=== PATIENT | female | born 1990 | race Caucasian/White ===

== ENCOUNTER 2020-11-22 19:34 | Observation (INO) ==
[2020-11-22 20:10] LABS: Basophils # 0.1 K/mcL (0.0-0.2); Basophils % 0.7 %; Eosinophils # 0.6 K/mcL (0.0-0.6); Eosinophils % 5.1 %; Hematocrit 41.1 % (35.3-44.9); Hemoglobin 14.1 g/dL (11.5-15.4); Immature Granulocytes % 0.3 % (0-4); Lymphocytes # 2.9 K/mcL (0.6-4.6); Lymphocytes % 24.5 %; Mean Corpuscular HGB Conc 34.3 g/dL (31.6-35.5); Mean Corpuscular Volume 90.3 fL (83.0-100.0); Mean Platelet Volume 12.9 fL (9.4-12.4); Monocytes # 0.9 K/mcL (0.0-1.3); Monocytes % 7.5 %; Neutrophils # 7.3 K/mcL (1.6-8.9); Platelet Count 198 K/mcL (140-400); Red Blood Count 4.55 M/mcL (3.82-4.97); Red Cell Distribution Width 12.3 % (11.5-14.5); Segmented Neutrophils % 61.9 %; White Blood Count 11.8 K/mcL (4.3-11.1)
[2020-11-22 20:20] LABS: Amphetamine Screen,Urine Positive ng/mL (Cutoff=1000); Barbiturate Screen,Urine Negative ng/mL (Cutoff=200); Benzodiazepines Screen,Urine Positive ng/mL (Cutoff=200); Cannabinoid Screen,Urine Positive ng/mL (Cutoff = 50); Cocaine Screen,Urine Positive ng/mL (Cutoff= 300); Opiate Screen,Urine Negative ng/mL (Cutoff=300); Phencyclidine Screen,Urine Negative ng/mL (Cutoff=25)
[2020-11-22 20:29] LABS: Acetaminophen < 10 mcg/mL (10-20); BUN/Creatinine Ratio 22 (6-26); Blood Urea Nitrogen 16 mg/dL (6-20); Calcium 9.3 mg/dL (8.6-10.3); Carbon Dioxide 24 mEq/L (23-29); Chloride 107 mEq/L (98-107); Chol/HDL Ratio 4.7 (0-4.9); Cholesterol 135 mg/dL (< 200); Ethanol < 10 mg/dL (Less than 10); Glucose 119 mg/dL (70-105); HDL Cholesterol 29 mg/dL (40-59); LDL Cholesterol,Calculated 89 mg/dL (< 100); Osmolality,Calculated 288 (280-300); Potassium 3.3 mEq/L (3.5-5.1); Salicylate < 2.5 mg/dL (15.0-30.0); Sodium 138 mEq/L (136-145); Triglycerides 84 mg/dL (< 150); eGFR For African Americans > 60 (> 60); eGFR For Non-African Americans > 60 (> 60)
[2020-11-22 20:39] LABS: Bilirubin,Urine Negative (Negative); Clarity,Urine Turbid (Clear); Color,Urine Yellow (Yellow); Glucose,Urine (UA) Normal (Normal)
[2020-11-22 20:40] LABS: Blood,Urine Negative (Negative); Ketones,Urine Trace mg/dL (Negative); Nitrite,Urine Negative (Negative); PH,Urine 6.5 pH Units (5.0-8.0); Protein,Urine 50 mg/dL (Neg-Trace); Specific Gravity,Urine > 1.030 (1.010-1.025)
[2020-11-22 20:41] LABS: Bacteria,Urine Few per hpf (None-Few); Leukocyte Esterase,Urine Negative (Negative); Mucus,Urine Few per lpf (None-Few); Squamous Epithelial Cell,Urine Moderate per hpf (None-Few); WBC,Urine 0-3 per hpf (0-3)
[2020-11-22 20:42] LABS: Calcium Oxalate Crystals,Urine Present per hpf; Calcium Phosphate Crystals,Ur Present per hpf
[2020-11-22 23:11] LABS: Estimated Average Glucose 97 mg/dl
[2020-11-23 00:36] LABS: Adenovirus Not Detected (Not Detect); Bordetella Pertussis Not Detected (Not Detect); Chlamydophila pneumoniae Not Detected (Not Detect); Coronavirus 229E Not Detected (Not Detect); Coronavirus HKU1 Not Detected (Not Detect); Coronavirus NL63 Not Detected (Not Detect); Coronavirus OC43 Not Detected (Not Detect); Human Metapneumovirus Not Detected (Not Detect); Human Rhinovirus/Enterovirus Not Detected (Not Detect); Influenza A Subtype 2009 H1 Not Detected (Not Detect); Influenza B Not Detected (Not Detect); Mycoplasma pneumoniae Not Detected (Not Detect); Parainfluenza Virus 1 Not Detected (Not Detect); Parainfluenza Virus 2 Not Detected (Not Detect); Parainfluenza Virus 3 Not Detected (Not Detect); Parainfluenza Virus 4 Not Detected (Not Detect); Respiratory Syncytial Virus Not Detected (Not Detect); SARS-CoV-2 Not Detected (Not Detect)
[2020-11-23] MEDS ORDERED: *HR* LORazepam 1 MG TABLET PO PRN (01:17)
[2020-11-23] MEDS ORDERED: Haloperidol Lactate 5 MG/ML VIAL IM PRN (01:17)
[2020-11-23] MEDS ORDERED: *HR* LORazepam 2 MG/ML VIAL IM PRN (01:17)
[2020-11-23] MEDS ORDERED: QUEtiapine Fumarate 25 MG TABLET PO PRN (01:17)
[2020-11-23] MEDS ORDERED: hydrOXYzine pamoate 25 MG CAPSULE PO PRN (01:17)
[2020-11-23] MEDS ORDERED: Ibuprofen 400 MG TABLET PO PRN (01:17)
[2020-11-23] MEDS ORDERED: haloperidoL 5 MG TABLET PO PRN (01:17)
[2020-11-23] MEDS: Mag Hydrox/Al Hydrox/Simeth 30 ML UDC PO PRN ×2 (02:21→14:19)
[2020-11-23 10:14] VITALS: BP 103/67
== END 2020-11-23 15:00 | disposition home or self-care (01) ==
LOC: EMEROOARM 19:34 → INTOOBSV 11-23 01:10 → 1ANU 11-23 01:10
PROVIDERS: ADMIT Psychiatry & Neurology Psychiatry; ATTEND Psychiatry & Neurology Psychiatry